=== PATIENT | female | born 1945 | race Caucasian/White ===

== ENCOUNTER 2018-06-11 07:36 | Day surgery (SDC) | payer OTHER, SELFPAY ==
--- NOTE | 2018-06-11 | PATH_ITS ---
[facility] Accession Number: [id number] . 01 Material submitted: . PART A: GASTRIC POLYP BIOPSY PART B: UMANA'S ESOPHAGUS 30 CM PART C: UMANA'S ESOPHAGUS AT 31 CM . 02 Diagnosis: A. Gastric Polyp, Biopsy: Fundic gland polyp. No evidence of Helicobacter organisms on H/E stain. Negative for intestinal metaplasia. Negative for dysplasia or malignancy. . B. Esophagus, 30 CM, Biopsy: Columnar mucosa with specialized intestinal metaplasia, consistent with Umana's esophagus. Negative for dysplasia or malignancy. . C. Esophagus, 31 CM, Biopsy: Squamocolumnar junctional mucosa with no diagnostic abnormality. Negative for specialized intestinal metplasia on Alcian blue stain. Negative for dysplasia or malignancy. BFI/06/13/2018 . 02 Electronically signed: . Roddy Aguilar MD, PhD, Pathologist NPI- [id number] . 01 Gross description: . Received three formalin-filled containers, each labeled with the patient's name: . A. In a container labeled gastric polyp, the specimen consists of a 0.2 cm portion of tissue, entirely submitted in cassette A. B. In a container labeled Umana's esophagus 30 cm, the specimen consists of a 0.1 cm portion of tissue, entirely submitted in cassette B. C. In a container labeled Umana's esophagus 31 cm, the specimen consists of three 0.1-0.3 cm portions of tissue, entirely submitted in cassette C. ([id number]) /FRR . 02 Microscopic: . C. An Alcian blue PAS stain is performed to evaluate for specialized intestinal metaplasia and is negative for goblet cells. No fungal organisms are identified. A control stain shows expected reactivity. . 02 Pathologist provided ICD-10: K22.70, K31.7 . 02 CPT . 570192, 168932, 812984, 118098 Performed at: 01 [facility] [address] [id number] MD Seven Almanza MD Phone: [phone] Performed at: 02 [facility] [id number] [place], [place] [id number] MD Shanna Oquendo MD Phone: [phone]
--- NOTE | 2018-06-11 07:48 | PM.HP.1 ---
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 Please refer to our office note dated 04/16/2017 for further details. The patient has been seen by Dr. Camille Kaba who felt her surgery would have to be done in [place] if she was to consider any repeat fundoplication. At present the patient would like to opt for watchful waiting unless there is a significant lesion on her upper endoscopy Patient History Medical History Asthma (Acute) Bleeding nose (Acute) Chest pain (Acute) Dizziness (Acute) Esophageal dysphagia (Acute) GERD (gastroesophageal reflux disease) (Acute) Hearing loss (Acute) Heartburn (Acute) History of Flaherty's esophagus (Acute) History of headache (Acute) History of hysterectomy (Acute ~1990) Hypertension (Acute) Papilloma of left eyelid (Acute ~2007) Vision changes (Acute) Surgical History H/O lateral meniscus repair of left knee (Acute) History of esophagogastroduodenoscopy (EGD) (Acute) History of fundoplication (Acute ~1995) History of repair of hiatal hernia (Acute) Social History household members: friend(s) Meds Home Medications Medication Instructions Recorded Confirmed Type amlodipine 5 mg PO DAILY 06/10/18 06/11/18 History aripiprazole [Abilify] 2 mg PO DAILY 06/10/18 06/11/18 History escitalopram oxalate 20 mg PO DAILY 06/10/18 06/11/18 History lisinopril 30 mg PO BID 06/10/18 06/11/18 History yrlttidq-qvo-OX-lycopen-lutein 1 tab PO DAILY 06/10/18 06/10/18 History [Centrum Silver] omeprazole 40 mg PO BID 06/10/18 06/11/18 History pravastatin 40 mg PO DAILY 06/10/18 06/11/18 History trazodone 50 mg PO BEDTIME 06/10/18 06/11/18 History Allergies Allergy/AdvReac Type Severity Reaction Status Date / Time hydrochlorothiazide Allergy Severe lowers Verified 06/11/18 07:58 blood pressure Sulfa (Sulfonamide Allergy Severe swelling Verified 06/11/18 07:58 Antibiotics) at site ampicillin Allergy Intermediate asthma rx Verified 06/11/18 07:58 adhesive tape Allergy Mild Rash Verified 06/11/18 07:58 Exam Narrative Exam Narrative: General: Patient is obese, not in apparent distress Cardiovascular: Regular rate and rhythm, no murmurs, rubs, or gallops; no evidence of edema; no palpable abdominal aortic aneurysm Gastrointestinal: Normoactive bowel sounds, soft, nontender, nondistended, no rebound tenderness, no hepatosplenomegaly, no evidence of hernia Assessment & Plan Assessment & Plan narrative: 72-year-old female who was last seen in our office in March 2018 who is here for Flaherty's esophagus surveillance Regarding the procedure(s), the risks and potential complications, benefits, and alternatives (including not doing the procedure) were discussed with the patient. The risks include but are not limited to bleeding, splenic injury, infection, perforation which may require surgical intervention, missed lesions, and adverse reactions to sedative medicines. After a question and answer period, the patient agreed to proceed with the procedure(s) and gives informed consent.
--- NOTE | 2018-06-11 07:51 | P.HP_ITS ---
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 Please refer to our office note dated 04/16/2017 for further details. The patient has been seen by Dr. Camille Kaba who felt her surgery would have to be done in [place] if she was to consider any repeat fundoplication. At present the patient would like to opt for watchful waiting unless there is a significant lesion on her upper endoscopy Patient History Medical History Asthma (Acute) Bleeding nose (Acute) Chest pain (Acute) Dizziness (Acute) Esophageal dysphagia (Acute) GERD (gastroesophageal reflux disease) (Acute) Hearing loss (Acute) Heartburn (Acute) History of Flaherty's esophagus (Acute) History of headache (Acute) History of hysterectomy (Acute ~1990) Hypertension (Acute) Papilloma of left eyelid (Acute ~2007) Vision changes (Acute) Surgical History H/O lateral meniscus repair of left knee (Acute) History of esophagogastroduodenoscopy (EGD) (Acute) History of fundoplication (Acute ~1995) History of repair of hiatal hernia (Acute) Social History household members: friend(s) Meds Home Medications Medication Instructions Recorded Confirmed Type amlodipine 5 mg PO DAILY 06/10/18 06/11/18 History aripiprazole [Abilify] 2 mg PO DAILY 06/10/18 06/11/18 History escitalopram oxalate 20 mg PO DAILY 06/10/18 06/11/18 History lisinopril 30 mg PO BID 06/10/18 06/11/18 History ikoipfxd-kuw-UP-lycopen-lutein 1 tab PO DAILY 06/10/18 06/10/18 History [Centrum Silver] omeprazole 40 mg PO BID 06/10/18 06/11/18 History pravastatin 40 mg PO DAILY 06/10/18 06/11/18 History trazodone 50 mg PO BEDTIME 06/10/18 06/11/18 History Allergies Allergy/AdvReac Type Severity Reaction Status Date / Time hydrochlorothiazide Allergy Severe lowers Verified 06/11/18 07:58 blood pressure Sulfa (Sulfonamide Allergy Severe swelling Verified 06/11/18 07:58 Antibiotics) at site ampicillin Allergy Intermediate asthma rx Verified 06/11/18 07:58 adhesive tape Allergy Mild Rash Verified 06/11/18 07:58 Exam Narrative Exam Narrative: General: Patient is obese, not in apparent distress Cardiovascular: Regular rate and rhythm, no murmurs, rubs, or gallops; no evidence of edema; no palpable abdominal aortic aneurysm Gastrointestinal: Normoactive bowel sounds, soft, nontender, nondistended, no rebound tenderness, no hepatosplenomegaly, no evidence of hernia Assessment & Plan Assessment & Plan narrative: 72-year-old female who was last seen in our office in March 2018 who is here for Flaherty's esophagus surveillance Regarding the procedure(s), the risks and potential complications, benefits, and alternatives (including not doing the procedure) were discussed with the patient. The risks include but are not limited to bleeding, splenic injury, infection, perforation which may require surgical intervention, missed lesions, and adverse reactions to sedative medicines. After a question and answer period, the patient agreed to proceed with the procedure(s) and gives informed consent.
[2018-06-11 08:01] VITALS: BP 120/66; PULSE 73; RESP 15; TEMP 36.6; O2SAT 97; BMI 34.0
[2018-06-11] MEDS: SODIUM CHLORIDE 0.9% 1,000 ML 70 ML IV (08:07)
--- NOTE | 2018-06-11 09:39 | PM.OP.ENDO ---
Operative Date/Time/Diagnoses Date of procedure: 06/11/18 Procedure Notes Procedure in detail: Surgeon: Rupert Grider MD Procedure: Esophagogastroduodenoscopy with biopsy Preoperative diagnosis: GERD, history of Flaherty's esophagus and prior fundoplication Postoperative diagnosis: Gastric polyps status post outside sales account representative biopsy, overall intact fundoplication, short-segment Flaherty's esophagus status post biopsy Medications: Conscious sedation using 5 mg IV of Midazolam and 100 mcg IV of Fentanyl Preanesthesia Assessment An H and P was performed/updated and the Px?s ASA class is 2. The procedure was discussed in detail with the patient. The potential risks and complications including infection, bleeding, missed lesions, perforation, need for surgery in case of perforation, prolonged hospital stay, and were explained. A brief question and answer period was allotted and once all questions were answered, informed consent was obtained. The patient was brought back to the procedure room and placed on standard monitoring. The patient?s vital signs were monitored continuously throughout the entire procedure. Prior to starting, a timeout was performed to confirm the patient?s identity, allergies, medications, and procedure. Procedure in detail The patient was placed in left lateral decubitus position and a bite block was inserted. The tip of the upper endoscope was placed into the mouth and advanced without difficulty under direct visualization into the esophagus. Esophagus: The distal esophagus was noted to be mildly tortuous. On examination of the distal esophagus there is note of a island of Flaherty's esophagus at 30 cm from the incisors. This was biopsied. The Z-line was noted at 31 cm and was irregular, biopsies were taken for Flaherty's esophagus surveillance. There is noted minimal bleeding after biopsies were taken. [place] classification is [id number] Stomach: There was note of multiple sessile and semi pedunculated polyps in the gastric body. A outside sales account representative biopsy was taken with minimal bleeding. Retroflexion was performed in the stomach which revealed an overall intact fundoplication although this appeared slightly loose at the GE junction. Duodenum: The visualized duodenum appeared normal The patient tolerated the procedure well and will be brought back to the recovery area to be discharged once criteria are met. The total physician intraservice time was 10 min. Complications There were no complications and estimated blood loss was minimal. Recommendations: Resume previous diet Anti-reflux measures at all times Continue outPx medications Follow up pathology results Repeat EGD depending on pathology results Office follow up with me if with worsening symptoms An emergency contact number was given to the patient for any complications related to the procedure
--- NOTE | 2018-06-11 09:42 | P.OP.ENDO_ITS ---
Operative Date/Time/Diagnoses Date of procedure: 06/11/18 Procedure Notes Procedure in detail: Surgeon: Rupert Grider MD Procedure: Esophagogastroduodenoscopy with biopsy Preoperative diagnosis: GERD, history of Flaherty's esophagus and prior fundoplication Postoperative diagnosis: Gastric polyps status post used equipment sales representative biopsy, overall intact fundoplication, short-segment Flaherty's esophagus status post biopsy Medications: Conscious sedation using 5 mg IV of Midazolam and 100 mcg IV of Fentanyl Preanesthesia Assessment An H and P was performed/updated and the Px?s ASA class is 2. The procedure was discussed in detail with the patient. The potential risks and complications including infection, bleeding, missed lesions, perforation, need for surgery in case of perforation, prolonged hospital stay, and were explained. A brief question and answer period was allotted and once all questions were answered, informed consent was obtained. The patient was brought back to the procedure room and placed on standard monitoring. The patient?s vital signs were monitored continuously throughout the entire procedure. Prior to starting, a timeout was performed to confirm the patient?s identity, allergies, medications, and procedure. Procedure in detail The patient was placed in left lateral decubitus position and a bite block was inserted. The tip of the upper endoscope was placed into the mouth and advanced without difficulty under direct visualization into the esophagus. Esophagus: The distal esophagus was noted to be mildly tortuous. On examination of the distal esophagus there is note of a island of Flaherty's esophagus at 30 cm from the incisors. This was biopsied. The Z-line was noted at 31 cm and was irregular, biopsies were taken for Flaherty's esophagus surveillance. There is noted minimal bleeding after biopsies were taken. [place] classification is C0M1 Stomach: There was note of multiple sessile and semi pedunculated polyps in the gastric body. A used equipment sales representative biopsy was taken with minimal bleeding. Retroflexion was performed in the stomach which revealed an overall intact fundoplication although this appeared slightly loose at the GE junction. Duodenum: The visualized duodenum appeared normal The patient tolerated the procedure well and will be brought back to the recovery area to be discharged once criteria are met. The total physician intraservice time was 10 min. Complications There were no complications and estimated blood loss was minimal. Recommendations: Resume previous diet Anti-reflux measures at all times Continue outPx medications Follow up pathology results Repeat EGD depending on pathology results Office follow up with me if with worsening symptoms An emergency contact number was given to the patient for any complications related to the procedure
[2018-06-11] MEDS: MIDAZOLAM 5 MG/5 ML VIAL IV (09:47)
[2018-06-11] MEDS: fentaNYL 250 MCG/5 ML INJ IV (09:48)
[2018-06-11 09:57] VITALS: BP 119/60; PULSE 82; RESP 16; TEMP 36.4; O2SAT 97
[2018-06-11 10:02] VITALS: BP 105/59; PULSE 74; RESP 12; O2SAT 95
[2018-06-11 10:07] VITALS: BP 114/69; PULSE 72; RESP 12; O2SAT 95
--- NOTE | 2018-06-11 10:14 | SUR.PHASEII ---
Pt lying on lt side, drowsy. Denied any needs. Call light provided.
[2018-06-11 10:25] VITALS: BP 104/60; PULSE 69; RESP 15; TEMP 36.5; O2SAT 94
== END 2018-06-11 11:08 | disposition home or self-care (01) ==
PROVIDERS: PCP Internal Medicine; Visit Provider Internal Medicine Gastroenterology
PROC: 0DJ08ZZ Inspection of Upper Intestinal Tract, Via Natural or Artificial Opening Endoscopic (ICD-10-PCS; CPT 43235; principal; 2018-06-11 09:30)
DX: K22.70 Barrett's esophagus without dysplasia (principal); K31.7 Polyp of stomach and duodenum; K21.9 Gastro-esophageal reflux disease without esophagitis; Z87.19 Personal history of other diseases of the digestive system; Z98.890 Other specified postprocedural states; I10 Essential (primary) hypertension; J45.909 Unspecified asthma, uncomplicated
CPT/HCPCS: 43239; J2250; J3010